=== PATIENT | male | born 1990 ===

== ENCOUNTER 2021-09-07 20:30 | Emergency (ER) | payer SELFPAY ==
[2021-09-07 22:37] VITALS: BP 116/66
--- NOTE | 2021-09-07 23:03 | XRay Report ---
LEFT KNEE 3 VIEWS INDICATION / CLINICAL INFORMATION: Left knee pain/injury after fall. COMPARISON: None available. FINDINGS: BONES and JOINT(S): No acute fracture or subluxation. No significant arthritis. SOFT TISSUES: No significant abnormality. ADDITIONAL FINDINGS: None. IMPRESSION: 1. No acute findings. Signer Name: Cecil Montalvo MD Signed: 09/07/2021 10:59 PM Workstation Name: [id number]
== END 2021-09-08 02:00 | disposition left against medical advice (07) ==
LOC: ED 20:30
DX: M25.462 Effusion, left knee (principal); M25.562 Pain in left knee; Z53.21 Procedure and treatment not carried out due to patient leaving prior to being seen by health care provider; X58.XXXA Exposure to other specified factors, initial encounter; Y93.89 Activity, other specified; Y92.89 Other specified places as the place of occurrence of the external cause; Y99.8 Other external cause status

== ENCOUNTER 2021-09-08 11:33 | Emergency (ER) | payer SELFPAY ==
[2021-09-08 12:32] VITALS: BP 121/76
--- NOTE | 2021-09-08 12:39 | Emergency Department Report ---
ED Extremity Problem HPI - General Chief complaint: Extremity Injury, Lower Stated complaint: KNEE PROBLEMS Time Seen by Provider: 09/08/21 12:32 Source: patient Mode of arrival: Ambulatory Limitations: No Limitations - History of Present Illness Initial comments: 30-year-old male presents to the emergency department for evaluation of left knee pain and swelling. He states that he injured his knee while out of town 12 days ago, had a negative x-ray, and was discharged home on ibuprofen. He states that ibuprofen helped pain and swelling significantly, but over the last few days pain and swelling has returned. He denies any new injuries. He states that he would like a refill of his ibuprofen and I have a doctor to follow-up with for further evaluation and management. He denies fever numbness or tingling in leg, chest pain, shortness of breath, and hemoptysis. MD Complaint: extremity pain, extremity swelling -: Gradual, days(s) (12) Location: left, knee History of Same: No -: No myalgia, No arthralgia, No fever, No associated dyspnea, No associated chest pain Radiation: none Severity scale (0 -10): 6 Quality: aching Consistency: intermittent Worsens with: weight bearing, palpation Associated Symptoms: denies: chest pain, shortness of breath, fever, myalgias, arthralgias, rash - Related Data Previous Rx's Medication Instructions Recorded Last Taken Type Ibuprofen [Motrin 600 MG tab] 600 mg PO Q8H PRN #30 tablet 09/08/21 Unknown Rx Allergies Allergy/AdvReac Type Severity Reaction Status Date / Time No Known Allergies Allergy Verified 09/07/21 22:37 ED Review of Systems ROS: Stated complaint: KNEE PROBLEMS Other details as noted in HPI Comment: All other systems reviewed and negative Constitutional: denies: chills, fever, malaise, weakness ENT: denies: congestion Respiratory: denies: shortness of breath Cardiovascular: denies: chest pain, palpitations Gastrointestinal: denies: abdominal pain, nausea Genitourinary: denies: as per HPI Musculoskeletal: denies: back pain Neurological: denies: headache, weakness ED Past Medical Hx - Past Medical History Previous Medical History?: No - Surgical History Past Surgical History?: No - Social History Smoking Status: Never Smoker - Medications Home Medications: Home Medications Medication Instructions Recorded Confirmed Last Taken Type Ibuprofen [Motrin 600 MG tab] 600 mg PO Q8H PRN #30 tablet 09/08/21 Unknown Rx ED Physical Exam - General Limitations: No Limitations General appearance: alert, in no apparent distress - Head Head exam: Present: atraumatic, normocephalic - Eye Eye exam: Present: normal appearance. Absent: conjunctival injection - Neck Neck exam: Present: normal inspection - Respiratory Respiratory exam: Absent: respiratory distress - Cardiovascular Cardiovascular Exam: Present: regular rate - GI/Abdominal GI/Abdominal exam: Absent: distended - Expanded Lower Extremity Exam Left Knee exam: Present: full ROM, tenderness, swelling. Absent: abrasion, laceration, ecchymosis, deformity, crepidus, dislocation, erythema, effusion Lower Leg exam: Present: normal inspection Ankle exam: Present: normal inspection Foot/Toe exam: Present: normal inspection Neuro vascular tendon exam: Present: no vascular compromise. Absent: pulse deficit, abnormal cap refill, motor deficit, sensory deficit, extremity cold to touch, pallor Gait: Positive: observed and limited by pain - Back Exam Back exam: Present: normal inspection - Neurological Exam Neurological exam: Present: alert, oriented X3 - Psychiatric Psychiatric exam: Present: normal affect, normal mood - Skin Skin exam: Present: warm, dry, intact, normal color ED Course Vital Signs 09/08/21 12:29 Temperature 98.9 F Pulse Rate 94 H Respiratory 14 Rate Blood Pressure 121/76 O2 Sat by Pulse 98 Oximetry ED Medical Decision Making - Radiology Data 30-year-old male presents to the emergency department for evaluation of left knee pain and swelling. He states that he injured his knee while out of town 12 days ago, had a negative x-ray, and was discharged home on ibuprofen. He states that ibuprofen helped pain and swelling significantly, but over the last few days pain and swelling has returned. He denies any new injuries. He states that he would like a refill of his ibuprofen and I have a doctor to follow-up with for further evaluation and management. He denies fever numbness or tingling in leg, chest pain, shortness of breath, and hemoptysis. Patient noted to have some tenderness and swelling to the left knee on examination. Patient was seen in this department last night for same and had a negative x-ray. Patient will be discharged home with ibuprofen to take as directed and advised to follow-up with orthopedics for further evaluation, management, and possibly more advanced imaging. He is advised to return to the emergency department as needed. He verbalizes understanding of and agreement with plan of care. Critical care attestation.: If time is entered above; I have spent that time in minutes in the direct care of this critically ill patient, excluding procedure time. ED Disposition Clinical Impression: Left knee pain Qualifiers: Chronicity: acute Qualified Code(s): M25.562 - Pain in left knee Disposition: HOME / SELF CARE / HOMELESS Is pt being admited?: No Does the pt Need Aspirin: No Condition: Stable Instructions: Acute Knee Pain, Adult, RICE Therapy for Routine Care of Injuries, Ackn-po-Exro, Musculoskeletal Pain Additional Instructions: Take medications as prescribed. Follow-up with orthopedics for further evaluation and management. Return to the emergency department as needed. Prescriptions: Ibuprofen [Motrin 600 MG tab] 600 mg PO Q8H PRN #30 tablet PRN Reason: Pain Referrals: BARRINGTON ARTEAGA MD [Staff Physician] - 3-5 Days Time of Disposition: 12:37
== END 2021-09-08 13:00 | disposition home or self-care (01) ==
LOC: ED 11:33
DX: M25.562 Pain in left knee (principal); Z79.899 Other long term (current) drug therapy
CPT/HCPCS: 99282